=== PATIENT | male | born 1995 | race Caucasian/White ===

== ENCOUNTER 2021-08-27 12:17 | Emergency (ER) | payer OTHER ==
[2021-08-27 13:21] LABS: BASOPHIL 0.9 % (0-2); EOSINOPHIL 2.8 % (0-5); HGB 15.7 g/dl (13.2-18.0); LYMPHOCYTE 36.9 % (15-48); MCH 29.6 pg (25.0-31.0); MCHC 35.7 g/dL (32.0-36.0); NEUTROPHIL 48.1 % (41-80); NRBC 0; PLT 297 K/uL (150-400); RDW 12.4 % (11.5-14.0); WBC 8.9 K/uL (4.0-10.5)
[2021-08-27 14:40] LABS: ALBUMIN 4.2 g/dL (3.4-5.0); BILIRUBIN - TOTAL 0.6 mg/dL (0.2-1.0); BUN/CREAT RATIO (CALC) 21.3 RATIO; CREATININE 0.89 mg/dL (0.67-1.17); GLOBULIN (CALCULATION) 3.4 g/dL; POTASSIUM 3.9 mmol/L (3.5-5.1); TOTAL PROTEIN 7.6 g/dL (6.4-8.2)
== END 2021-08-27 15:33 | disposition home or self-care (01) ==
LOC: FER 12:17
PROVIDERS: Nurse Practitioner Family
DX: T59.811A Toxic effect of smoke, accidental (unintentional), initial encounter (principal); R03.0 Elevated blood-pressure reading, without diagnosis of hypertension; Y92.89 Other specified places as the place of occurrence of the external cause; Y99.0 Civilian activity done for income or pay
CPT/HCPCS: 36415; 71045; 80053; 84484; 85025; 93005